=== PATIENT | male | born 1955 | race Caucasian/White ===

== ENCOUNTER → 2017-09-28 08:56 | Outpatient (CLI) | payer MEDICARE, SELFPAY ==
--- NOTE | 2017-09-28 09:10 | RAD_ITS ---
STUDY: X-RAY CHEST REASON FOR EXAM: Male, 62 years old. 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 TECHNIQUE: PA and lateral views of the chest. COMPARISON: Comparison is made with prior chest radiograph dated October 23, [address] scan of thorax dated January 08, 2014. FINDINGS: Surgical clips are seen in the lower aspect of the right cervical region. Right apical thickening with increased markings in the right lung apex most likely representing postradiation fibrosis. Hyperinflation. Scattered calcified granulomas. No focal infiltrate is seen. Normal size heart. Normal mediastinum and sean. Normal visualized pulmonary arteries. There is atherosclerotic calcification of the aortic arch with tortuosity. There is demineralization of the osseous structures. Normal visualized ribs, clavicles, and shoulders. There is no demonstrated abnormality of the visualized soft tissue structures of the upper abdomen. RAD/Chest PA and Lateral IMPRESSION: Hyperinflation. Findings suggestive of post radiation scarring at the right lung apex. Electronically Signed: Ashok Isaac MD at 13:11 EDT Tel [phone], Service support ,
== END ==
PROVIDERS: Family Provider Family Medicine; PCP Family Medicine; Visit Provider Internal Medicine Medical Oncology
DX: C09.9 Malignant neoplasm of tonsil, unspecified (principal)
CPT/HCPCS: 71046

== ENCOUNTER 2022-08-20 19:49 | Emergency (ER) | payer MEDICARE, SELFPAY ==
[2022-08-20 19:49] VITALS: BP 88/19; PULSE 103; RESP 18; TEMP 36.7; O2SAT 93; BMI 19.1
--- NOTE | 2022-08-20 20:32 | CT_ITS ---
STUDY: CT ABDOMEN AND PELVIS WITHOUT CONTRAST REASON FOR EXAM: Male, 67 years old. Abdominal pain. Left lower quadrant intermittent pain for 4 to 5 years. History of oropharyngeal cancer. History of PEG tube. RADIATION DOSAGE (If Supplied By Facility): CTDIvol = ( 6.04 ) mGy, DLP = ( 292.95 ) mGycm TECHNIQUE: Transaxial images were obtained from the dome of the diaphragm to the symphysis pubis without oral contrast, and without intravenous contrast. Sagittal and coronal images were reconstructed. Individualized dose optimization techniques were used for this CT. COMPARISON: None. FINDINGS: Emphysematous changes in the lung bases without mass or infiltrate. No pleural abnormality. The visualized portions of the heart are within normal limits. Normal liver. The gallbladder is poorly distended but otherwise unremarkable. No biliary ductal dilatation. Normal spleen. Normal pancreas. Normal bilateral adrenal glands. Normal right kidney. Normal left kidney. Normal visualized ureters. Normal visualized stomach. Normal small intestine. Air and feces is seen within the colon. There is no mass or obstruction. 3 There is diffuse atherosclerotic calcification of the abdominal aorta, without a demonstrated aneurysm. Normal inferior vena cava. Normal retroperitoneum. Thick-walled urinary bladder without filling defect. The prostate is enlarged and invaginates into the bladder floor. No pelvic lymphadenopathy. There is minimal fluid in the pelvis without free air. Normal abdominal wall. Degenerative changes of the lumbar spine and hips. CT/Abdomen/Pelvis without Cont IMPRESSION: 1. Emphysema. 2. Bladder wall thickening. Cystitis versus bladder outlet obstruction. 3. Enlarged prostate. 4. Minimal free fluid in the pelvis of unknown etiology. 5. Atherosclerotic changes of the abdominal aorta. 6. Degenerative changes of the lumbar spine and hips. Electronically Signed: Bronson Hart DO at 21:04 EDT Reading Location ID and State: [address] [place] [address] Tel [phone], Service support ,
[2022-08-20 20:35] LABS: Bacteria 0 SEEN /hpf (None Seen); Mucous, Urine 0 SEEN /hpf (<or=2+); Red Blood Cells-Urine 0 SEEN /hpf (0-5); Squamous Epithelial Cells - UA 0 SEEN /hpf (0-5)
[2022-08-20 20:42] LABS: Absolute Lymphocyte Count 1.34 X10^3/uL (0.83-4.51); Absolute Neutrophil Count 11.4 X10^3/uL (2.0-7.7); Basophil# 0.05 X10^3/uL; Basophil% 0.4 % (0-1); Eosinophils% 0.7 % (0-5); Hematocrit 48.2 % (40-54); Hemoglobin 16.3 g/dL (13.0-16.5); Lymphocyte # 1.34 X10^3/ul (0.83-4.51); Lymphocyte % 9.5 % (19-41); Mean Corp Hgb Conc 33.8 g/dL (32-36); Mean Corpuscular Hgb 33.7 pg (27.0-32.0); Mean Corpuscular Volume 99.8 fL (80-94); Monocyte# 1.24 X10^3/uL; Monocyte% 8.8 % (0-10); NRBC Flagged by Analyzer 0 % (0-5); Neutrophil # 11.36 X10^3/uL (2.7-7.7); Neutrophil % 80.2 % (47-70); Platelet Count 373 K/mm3 (150-450); RBC Distribution Width CV 14.6 % (11.6-14.6); RBC Distribution Width SD 54.2 fl (35.1-43.9); Red Blood Count 4.83 M/mm3 (4.6-6.2); White Blood Count 14.2 K/mm3 (4.4-11.0)
[2022-08-20 20:53] LABS: Color, Urine Yellow (Yellow); Glucose, Dipstick Normal (Normal); Ketone-Dipstick 5 mg/dl (Negative); Leukocyte Esterase-Dipstick 25 /ul (Negative); Nitrite-Dipstick Negative (Negative); Occult Blood-Urine 10 /ul (Negative); Protein-Dipstick 30 mg/dl (Negative); Specific Gravity, Urine 1.025 (1.002-1.030); Urine Bilirubin Dipstick Negative (Negative); Urine Clarity Clear (Clear); Urine Urobilinogen 1 mg/dl (Normal)
[2022-08-20 20:59] LABS: ALB/GLOB Ratio 0.7 RATIO (0.9-2.4); AST(SGOT) 20 U/L (15-37); Alanine Aminotransfer ALT/SGPT 18 U/L (16-61); Albumin, Serum 3.2 g/dL (3.2-5.0); Alkaline Phosphatase 108 U/L (45-117); Anion Gap 6 (5-15); BUN 44 mg/dL (7-18); BUN/Creat Ratio 41.5 RATIO (10-20); Calcium,Total 10.1 mg/dL (8.5-10.1); Chloride 100 mmol/L (98-107); Creatinine, Serum 1.06 mg/dL (0.70-1.30); EST Glomerular Filtration Rate 74 mL/min (>60); Est Glom Filt Rate - Afr Amer 90 mL/min (>60); Estimated Creatinine Clearance 56.23 ml/min; Globulin 4.5 g/dL (2.2-4.2); Glucose 103 mg/dL (74-106); Lipase 256 U/L (73-393); Potassium 4.7 mmol/L (3.5-5.1); Protein, Total 7.7 g/dL (6.4-8.2); Sodium Level 138 mmol/L (136-145)
[2022-08-20 21:02] LABS: Hyaline Cast 5-10 SEEN /lpf (0-5); White Blood Cells 0-5 SEEN /hpf (0-5)
[2022-08-20 21:49] VITALS: BP 121/81; PULSE 89; RESP 16; O2SAT 93
--- NOTE | 2022-08-20 21:53 | ED.VIS.GI ---
HPI HPI - GI History of Present Illness Chief Complaint: Abd Pain Abdominal Pain/Flank Pain Onset: Days (4-5) Context: Gradual Onset Timing: Waxes and wanes Quality: Cramping Location: LUQ Worsened by: Nothing Relieved by: Food Nausea/Vomiting/Emesis GI Symptom: Positive for Nausea and Vomiting Quality: Positive for Nonbilious; Negative for Blood streaks, Coffee ground or Hematemesis Diarrhea/Melena/Hematochezia GI Symptom: Negative for Diarrhea, Melena or Hematochezia Associated Symptoms Associated Symptoms: Positive for Frequency; Negative for Dysuria or Hematuria Narrative Narrative: Patient presents with left upper quadrant abdominal pain that has been waxing and waning over the last 4 to 5 days. Patient states it is better after he eats and his stomach feels full. Patient states it is worse before he eats when his stomach is empty. Patient describes his pain as cramping. Patient states the pain is over the left upper abdomen. Patient denies any fevers or chills. Patient admits to some nausea and vomiting. Patient denies any hematemesis or coffee-ground emesis. Patient admits to some urinary frequency but denies any dysuria or hematuria. Patient denies any diarrhea, melena, or hematochezia. PFSH [facility] Medical History GERD (gastroesophageal reflux disease) Heart murmur Hyperlipidemia mandibular revision Rheumatic fever right segmental mandibular resection Thyroid disease Tonsil cancer Home Medications atorvastatin 20 mg tablet 40 mg PO QHS 08/21/15 [History Last Taken Unknown] chlorhexidine gluconate 0.12 % mouthwash (Peridex) 15 ml MM BID 08/21/15 [History Last Taken Unknown] levothyroxine 175 mcg tablet 175 mcg PO DAILY 09/30/17 [History Last Taken Unknown] omeprazole 20 mg capsule,delayed release 20 mg PO DAILY #30 CAPSULES 08/20/22 [Rx Last Taken Unknown] Allergy/AdvReac Type Severity Reaction Status Date / Time No Known Allergies Allergy Verified 09/30/17 13:37 Family History Mother Diabetes Surgical History H/O hernia repair History of vasectomy Hx of tonsillectomy S/P percutaneous endoscopic gastrostomy (PEG) tube placement Social History Smoking Status: Current every day smoker tobacco type: cigarettes ROS ROS ED Constitutional Constitutional ED: Denies chills or fever(s) Eyes Eyes: Denies blurry vision or change in vision ENT ENT ED: Reports sore throat; Denies rhinorrhea Cardiovascular Cardiovascular: Denies chest pain or palpitations Respiratory/Chest Respiratory/Chest: Denies cough or dyspnea Gastrointestinal Gastrointestinal: Reports abdominal pain, nausea and vomiting; Denies diarrhea or melena Genitourinary Genitourinary ED: Denies dysuria or hematuria Musculoskeletal Musculoskeletal: Reports back pain and neck pain Integumentary Denies abscess or rash Neurologic Neurologic: Reports headache(s); Denies weakness Allergic/Immunologic Allergic/Immunologic ED: Denies mouth swelling or urticaria EXAM Physical Exam Const Vital Signs: 08/20/22 19:49 08/20/22 21:49 Temperature 98.1 F Temperature Source Temporal Pulse Rate 103 H 89 Respiratory Rate 18 16 Blood Pressure 88/19 L 121/81 H Blood Pressure Mean 42 Pulse Ox 93 93 Positive well nourished and well developed General Appearance ED: well developed and NAD HEENT Reports moist mucous membranes HEENT Narrative: There is a soft tissue mass of the lower gingiva and oral mucosa in the midline of the mandible. Oropharynx is clear. Airway is patent. Neck supple and no JVD Resp normal respiratory effort and clear to auscultation bilaterally Cardio regular rate, regular rhythm and no murmurs GI normal to inspection, nondistended, normoactive bowel sounds and non-tender Palpation: soft and tender LUQ; Negative for guarding or rebound tenderness present Extremity normal to inspection General Extremety ED: Negative for edema or tenderness General Extremity: Negative for edema Neuro oriented x3, CN's II-XII intact bilaterally and no sensory deficits noted Sensorium / Orientation: alert Motor Exam: strength 5/5 throughout Psych mental status grossly normal Skin no rashes or lesions noted MDM MDM MDM Narrative Medical decision making narrative: Differential diagnosis includes bowel obstruction, perforation, gastritis, peptic ulcer disease, pancreatitis, abdominal mass, urinary tract infection, and pyelonephritis. CBC will be obtained to assess for leukocytosis and anemia. Comprehensive metabolic profile will be obtained to assess for renal function, hepatic function, and electrolyte abnormality. Urinalysis will be obtained to assess for urinary tract infection. Lipase will be obtained to assess for pancreatitis. CT scan of the abdomen pelvis will be obtained to assess for bowel obstruction, perforation, and mass. History & Record Review Additional record(s) reviewed:: Prior labs Lab Data Attestation: I reviewed the patient's lab results. Lab results narrative: CBC was reviewed. There is a mild leukocytosis of 14.2. Hemoglobin was stable at 16.3. Platelets were normal. Comprehensive metabolic profile was reviewed. BUN is slightly increased at 44. The remainder was within normal limits. Lipase was reviewed and was normal at 256. Urinalysis was reviewed. There is no evidence of urinary tract infection or hematuria. Labs: Laboratory Results - last 24 hr 08/20/22 08/20/22 08/20/22 20:10 20:10 20:10 WBC 14.2 H RBC 4.83 Hgb 16.3 Hct 48.2 MCV 99.8 H MCH 33.7 H MCHC 33.8 RDW Std Deviation 54.2 H RDW Coeff of Sheldon 14.6 Plt Count 373 MPV 10.0 Immature Gran % (Auto) 0.400 Neut % (Auto) 80.2 H Lymph % (Auto) 9.5 L [place] % (Auto) 8.8 Eos % (Auto) 0.7 Baso % (Auto) 0.4 Absolute Neuts (auto) 11.4 H Absolute Lymphs (auto) 1.34 Nucleated RBC % 0 Sodium 138 Potassium 4.7 Chloride 100 Carbon Dioxide 32.0 Anion Gap 6 BUN 44 H Creatinine 1.06 Estim Creat Clear Calc 56.23 Est GFR (MDRD) Af Amer 90 Est GFR (MDRD) Non-Af 74 BUN/Creatinine Ratio 41.5 H Glucose 103 Calcium 10.1 Total Bilirubin 0.20 AST 20 ALT 18 Alkaline Phosphatase 108 Total Protein 7.7 Albumin 3.2 Globulin 4.5 H Albumin/Globulin Ratio 0.7 L Lipase 256 Urine Color Yellow Urine Clarity Clear Urine pH 5.0 Ur Specific [place] 1.025 Urine Protein 30 H Urine Glucose (UA) Normal Urine Ketones 5 H Urine Occult Blood 10 H Urine Nitrite Negative Urine Bilirubin Negative Urine Urobilinogen 1 H Ur Leukocyte Esterase 25 H Urine RBC 0 SEEN Urine WBC 0-5 SEEN Ur Squamous Epith Cells 0 SEEN Urine Bacteria 0 SEEN Hyaline Casts 5-10 SEEN Urine Mucus 0 SEEN Radiography Diagnostic Testing: Clinical Impression(s) from Imaging Studies Abdomen/Pelvis CT 08/20/22 20:32 IMPRESSION: 1. Emphysema. 2. Bladder wall thickening. Cystitis versus bladder outlet obstruction. 3. Enlarged prostate. 4. Minimal free fluid in the pelvis of unknown etiology. 5. Atherosclerotic changes of the abdominal aorta. 6. Degenerative changes of the lumbar spine and hips. Electronically Signed: Bronson HartDO at 21:04 EDT Reading Location ID and State: [facility] / [place] Tel [phone], Service support , CT scan of the abdomen pelvis was obtained. There is bladder wall thickening. There is an enlarged prostate. There is no acute intra-abdominal abnormality noted. This was interpreted by the radiologist and was also independently reviewed by myself. Treatment and Re-Evaluation :: Patient was feeling better on reevaluation. Patient was advised of his findings. I do not feel the patient needs to be admitted to the hospital. Patient is agreeable with this. Patient was given a prescription for omeprazole. Patient was instructed to follow-up with his primary care physician in 3 to 5 days. Patient understood and was agreeable with the plan. All questions were answered. Discharge Plan Triage Chief Complaint: Abd Pain ED Provider: Eliseo Granados Dx/Rx/DC Orders Clinical Impression: Abdominal pain, History of oropharyngeal cancer Instructions: ED Abdominal Pain Unkn Cause Male... Prescriptions: New omeprazole [omeprazole] 20 mg capsule,delayed release(DR/EC) 20 mg PO DAILY Qty: 30 0RF No Action atorvastatin 20 MG tablet 40 mg PO QHS Label Comments: cholesterol chlorhexidine gluconate [Peridex] 15 ML mouthwash 15 ml MM BID Label Comments: mouthwash levothyroxine 175 MCG tablet 175 mcg PO DAILY Primary Care Provider: Mj Meyers Referrals: Mj Meyers MD [Primary Care Provider] - 3-5 Days Disposition Disposition: Home, Self Care
== END 2022-08-20 21:54 | disposition home or self-care (01) ==
PROVIDERS: Emergency Provider Emergency Medicine; PCP Family Medicine; Visit Provider Emergency Medicine
DX: R10.12 Left upper quadrant pain (principal); F17.210 Nicotine dependence, cigarettes, uncomplicated
CPT/HCPCS: 74176; 80053; 81001; 83690; 85025; 99282

== ENCOUNTER 2023-11-01 21:42 | Emergency (ER) | payer MEDICARE, SELFPAY ==
[2023-11-01 21:43] VITALS: BP 101/84; PULSE 108; RESP 18; TEMP 36.8; O2SAT 94; BMI 17.3
[2023-11-01 22:11] VITALS: BP 149/107; PULSE 78; RESP 19; O2SAT 94
[2023-11-01 22:53] LABS: Absolute Lymphocyte Count 1.71 X10^3/uL (0.83-4.51); Basophil# 0.06 X10^3/uL; Basophil% 0.6 % (0-1); Eosinophil# 0.19 X10^3/uL; Eosinophils% 1.9 % (0-5); Hematocrit 52.6 % (40-54); Lymphocyte # 1.71 X10^3/ul (0.83-4.51); Lymphocyte % 17.2 % (19-41); Mean Corp Hgb Conc 32.3 g/dL (32-36); Mean Corpuscular Hgb 32.9 pg (27.0-32.0); Mean Corpuscular Volume 101.7 fL (80-94); Mean Platelet Vol. 10.2 fl (6.2-12.0); Monocyte# 0.94 X10^3/uL; Monocyte% 9.4 % (0-10); NRBC Flagged by Analyzer 0 % (0-5); Neutrophil # 7.03 X10^3/uL (2.7-7.7); Neutrophil % 70.5 % (47-70); Platelet Count 320 K/mm3 (150-450); RBC Distribution Width CV 12.5 % (11.6-14.6); RBC Distribution Width SD 47.5 fl (35.1-43.9); Red Blood Count 5.17 M/mm3 (4.6-6.2)
[2023-11-01 23:10] LABS: ALB/GLOB Ratio 0.8 RATIO (0.9-2.4); AST(SGOT) 16 U/L (15-37); Alanine Aminotransfer ALT/SGPT 15 U/L (16-61); Albumin, Serum 3.6 g/dL (3.2-5.0); Alkaline Phosphatase 122 U/L (45-117); Anion Gap 4 (5-15); BUN 31 mg/dL (7-18); BUN/Creat Ratio 39.2 RATIO (10-20); Calcium,Total 10.4 mg/dL (8.5-10.1); Chloride 101 mmol/L (98-107); Creatinine, Serum 0.79 mg/dL (0.70-1.30); EST Glomerular Filtration Rate 104 mL/min (>60); Est Glom Filt Rate - Afr Amer 125 mL/min (>60); Estimated Creatinine Clearance 66.66 ml/min; Globulin 4.8 g/dL (2.2-4.2); Glucose 117 mg/dL (74-106); Potassium 4.7 mmol/L (3.5-5.1); Protein, Total 8.4 g/dL (6.4-8.2); Sodium Level 137 mmol/L (136-145)
--- NOTE | 2023-11-01 23:29 | CT_ITS ---
EXAM: CT Abdomen And Pelvis W/ Contrast Injection HISTORY: abd pain n/v bloody stool, hx tonsil ca, hernial repair, peg tube labs 104 TECHNIQUE: Routine protocol CT abdomen pelvis. IV Contrast: IV 100mL Isovue-370 . Oral Contrast: without. Sagittal and coronal images were reconstructed. RADIATION DOSAGE (If Supplied By Facility): CTDIvol = ( 12.13 ) mGy, DLP = ( 396.75 ) mGycm Individualized dose optimization techniques were used for this CT. COMPARISON: CT abdomen and pelvis 08/20/2022. LIMITATIONS: None. FINDINGS: LOWER CHEST: Emphysematous changes. Patchy groundglass opacities left lower lobe increased compared to the prior.. LIVER: A few tiny low-attenuation structures too small to characterize. GALLBLADDER/BILE DUCTS: Unremarkable. PANCREAS: Pancreatic duct is slightly dilated 4 mm. SPLEEN: Unremarkable. ADRENAL GLANDS: Unremarkable. KIDNEYS / URETERS: Unremarkable. A few small cysts in the kidneys. BOWEL / MESENTERY: G tube tip in the stomach. Suggestion of gastric wall thickening distal gastric antrum through the first portion of the duodenum possibly exaggerated by suboptimal distention. Short segment small bowel intussusception in the left mid abdomen, length of approximately 3.5 cm. No wall thickening or adjacent stranding. Suggestion of wall thickening of the descending colon versus nondistention. No bowel obstruction. APPENDIX: Not identified. PERITONEUM: No free air. No free fluid. VESSELS: Abdominal aorta is normal caliber. RETROPERITONEUM: Unremarkable. REPRODUCTIVE ORGANS: Prostate enlarged and heterogeneous, indents into the base of the bladder. BLADDER: Mildly distended. Prominent wall likely suboptimal distention. ABDOMINAL WALL: Unremarkable. BONES: No acute abnormality. Osteopenic. Bilateral pars defects at L5 with grade 1 spondylolisthesis L5-S1. OTHER: None. CT/Abdomen/Pelvis W IV Cont ONLY IMPRESSION: 1. Suggestion of distal gastric/duodenal wall thickening and nondistention versus gastritis or other process. 2. Suggestion of wall thickening descending colon is most likely nondistention. Early colitis difficult to exclude. 3. Short segment of small bowel intussusception in the left mid abdomen may be an incidental transient finding. No findings of complication or bowel obstruction. 4. Slightly dilated pancreatic duct. Uncertain etiology. Consider follow-up MRI/MRCP. 5. Enlarged prostate. 6. Patchy groundglass opacities in the left lower lobe most likely inflammatory/pneumonitis superimposed on chronic changes. Correlate for pneumonia. Electronically Signed: Irene Castro MD at 1:28 EDT ,
[2023-11-01 23:33] LABS: Lipase 46 U/L (13-75)
[2023-11-01] MEDS: Morphine 4 MG/ML Syringe IV (23:36)
[2023-11-01] MEDS: 0.9% Normal Saline (500mL Bag) 500 ML 999 ML IV (23:36)
[2023-11-01] MEDS: Ondansetron 4 MG/2 ML Vial IV (23:36)
[2023-11-01 23:42] VITALS: BP 146/99; PULSE 83; RESP 15; O2SAT 93
[2023-11-02 00:07] LABS: Lactic Acid 0.7 mmol/L (0.4-1.9)
[2023-11-02 00:55] LABS: Bacteria 0 SEEN /hpf (None Seen); Mucous, Urine 0 SEEN /hpf (<or=2+); Red Blood Cells-Urine 0 SEEN /hpf (0-5); Squamous Epithelial Cells - UA 0 SEEN /hpf (0-5); White Blood Cells 0 SEEN /hpf (0-5)
[2023-11-02 00:58] LABS: Color, Urine Yellow (Yellow); Glucose, Dipstick Normal (Normal); Ketone-Dipstick Negative (Negative); Leukocyte Esterase-Dipstick Negative /ul (Negative); Nitrite-Dipstick Negative (Negative); Occult Blood-Urine Negative /ul (Negative); Protein-Dipstick 15 mg/dl (Negative); Urine Bilirubin Dipstick Negative (Negative); Urine Clarity Clear (Clear); Urine Urobilinogen Normal (Normal)
[2023-11-02 01:00] VITALS: BP 147/95; PULSE 83; RESP 18; O2SAT 90
--- NOTE | 2023-11-02 02:28 | EX.ED.DYSGE1 ---
HPI History of Present Illness Chief Complaint: Abd Pain Informant: patient Narrative Narrative: Patient is a 68-year-old male with past medical history of oropharyngeal cancer requiring PEG tube placement. He states he is having generalized abdominal discomfort which is greatest at the insertion of the PEG tube site and that he has been having diarrhea that appears bloody in nature. He denies any fevers but states that secondary to the pain and persistent symptoms he is concerned he may need potential antibiotics for potential infection and therefore comes in for evaluation. [facility] Medical History GERD (gastroesophageal reflux disease) Heart murmur Hyperlipidemia mandibular revision Rheumatic fever right segmental mandibular resection Thyroid disease Tonsil cancer Home Medications ?Medication ?Instructions ?Recorded ?Last Taken ?Type atorvastatin 20 mg tablet 40 mg PO QHS 08/21/15 Unknown History chlorhexidine gluconate 0.12 % 15 ml MM BID 08/21/15 Unknown History mouthwash (Peridex) levothyroxine 175 mcg tablet 175 mcg PO DAILY 09/30/17 Unknown History omeprazole 20 mg capsule,delayed 20 mg PO DAILY #30 CAPSULES 08/20/22 Unknown Rx release amoxicillin 400 mg-potassium 10 ml PO BID 7 days #140 mL 11/02/23 Unknown Rx clavulanate 57 mg/5 mL oral suspension oxycodone 5 mg/5 mL oral solution 5 mg (5 mL) PO Q6H PRN pain 3 days 11/02/23 Unknown Rx #60 mL Allergy/AdvReac Type Severity Reaction Status Date / Time No Known Allergies Allergy Verified 11/01/23 21:45 Family History Mother Diabetes Surgical History H/O hernia repair History of vasectomy Hx of tonsillectomy S/P percutaneous endoscopic gastrostomy (PEG) tube placement Social History Smoking Status: Current every day smoker tobacco type: cigarettes ROS ROS ED Constitutional Constitutional ED: Denies chills or fever(s) Cardiovascular Cardiovascular: Denies chest pain Respiratory/Chest Respiratory/Chest: Denies cough or dyspnea Gastrointestinal Gastrointestinal: Reports abdominal pain and diarrhea; Denies nausea or vomiting Genitourinary Genitourinary ED: Denies dysuria or hematuria Musculoskeletal Musculoskeletal: Reports myalgias Integumentary Denies rash Neurologic Neurologic: Denies headache(s) Hematologic/Lymphatic Hematologic/Lymphatic: Denies easy bleeding or easy bruising EXAM Physical Exam Const Vital Signs: 11/01/23 21:43 11/01/23 22:11 11/01/23 23:42 Temperature 98.2 F Temperature Source Temporal Pulse Rate 108 H 78 83 Respiratory Rate 18 19 H 15 Blood Pressure 101/84 H 149/107 H 146/99 H Blood Pressure Mean 89 121 114 Pulse Ox 94 94 93 Oxygen Delivery Method Room Air Room Air Room Air 11/02/23 01:00 Temperature Temperature Source Pulse Rate 83 Respiratory Rate 18 Blood Pressure 147/95 H Blood Pressure Mean 112 Pulse Ox 90 Oxygen Delivery Method Room Air Positive well nourished and well developed General Appearance ED: well developed; Negative for pallor HEENT HEENT Narrative: Patient has chronic changes to his mouth/jaw secondary to history of oropharyngeal cancer and reconstructive surgery however there is no dried blood or active bleeding noted in the posterior pharynx no overt signs of infection Eyes PERRL and EOMs intact bilaterally General Eye ED: Negative for pale conjunctiva or scleral icterus Neck supple Resp normal respiratory effort and clear to auscultation bilaterally Resp Narrative: Breath sounds are diminished But overall clear to auscultation without signs of respiratory distress Cardio regular rate and regular rhythm Rate: other Other Details: Heart is regular rate and rhythm Radial and carotid pulses are equal and symmetric GI non-distended GI Narrative: Abdomen is soft and nondistended with hyperactive bowel sounds. Patient has mild diffuse tenderness to palpation which is greatest at the insertion of the PEG tube site. The skin overlying this area is excoriated and erythematous consistent with tissue breakdown. There is no voluntary guarding or rigidity or pulsatile mass. Auscultation: hyperactive bowel sounds Palpation: soft Narrative: Rectal exam shows no hemorrhoids or anal fissure and rectal tone is normal and stool is brown in color and Hemoccult negative Extremity normal to inspection Neuro oriented x3, CN's II-XII intact bilaterally and no sensory deficits noted Sensorium / Orientation: alert Motor Exam: strength 5/5 throughout Psych mental status grossly normal Skin Skin Narrative: Soft tissue excoriation around the insertion of the PEG tube site as documented above General Skin Exam: Negative for jaundice or pallor MDM MDM MDM Narrative Medical decision making narrative: Patient presented to the ER with stable vitals and a soft nonsurgical abdomen. He had diffuse tenderness palpation and reported loose stool/diarrhea with concern for blood and therefore differential diagnosis is for gastroenteritis secondary to [place] versus rotavirus versus pancreatitis versus colitis versus diverticulitis versus acute blood loss anemia. Basic blood work is obtained and shows a stable H&H without left shift or lactic acidosis. Patient's rectal exam revealed no sign of melanotic stool and Hemoccult test was negative. Urine sample revealed no sign of blood or infection either and lipase and liver enzymes revealed no signs of potential biliary colic/acute cholecystitis or pancreatitis. Patient was treated and reported improvement of his pain and on reevaluation his abdomen remains soft and nonsurgical. Therefore with negative workup at this time and improvement of symptoms I do not feel there is need for further treatment or admission to the hospital and is otherwise safe for discharge History & Record Review Discussion w/independent historian: Patient Lab Data Attestation: I reviewed the patient's lab results. Labs: Laboratory Results - last 24 hr 11/01/23 11/01/23 11/02/23 22:35 23:25 00:50 WBC 10.0 RBC 5.17 Hgb 17.0 H Hct 52.6 MCV 101.7 H MCH 32.9 H MCHC 32.3 RDW Std Deviation 47.5 H RDW Coeff of [place]ld[place] 12.5 Plt Count 320 MPV 10.2 Immature Gran % (Auto) 0.400 Neut % (Auto) 70.5 H Lymph % (Auto) 17.2 L [place] % (Auto) 9.4 Eos % (Auto) 1.9 Baso % (Auto) 0.6 Absolute Neuts (auto) 7.0 Absolute Lymphs (auto) 1.71 Nucleated RBC % 0 Sodium 137 Potassium 4.7 Chloride 101 Carbon Dioxide 32.0 Anion Gap 4 L BUN 31 H Creatinine 0.79 Estim Creat Clear Calc 66.66 Est GFR (MDRD) Af Amer 125 Est GFR (MDRD) Non-Af 104 BUN/Creatinine Ratio 39.2 H Glucose 117 H Lactic Acid 0.7 Calcium 10.4 H Total Bilirubin 0.20 AST 16 ALT 15 L Alkaline Phosphatase 122 H Total Protein 8.4 H Albumin 3.6 Globulin 4.8 H Albumin/Globulin Ratio 0.8 L Lipase 46 Urine Color Yellow Urine Clarity Clear Urine pH 7.0 Ur Specific [place] 1.010 Urine Protein 15 H Urine Glucose (UA) Normal Urine Ketones Negative Urine Occult Blood Negative Urine Nitrite Negative Urine Bilirubin Negative Urine Urobilinogen Normal Ur Leukocyte Esterase Negative Urine RBC 0 SEEN Urine WBC 0 SEEN Ur Squamous Epith Cells 0 SEEN Urine Bacteria 0 SEEN Urine Mucus 0 SEEN Radiography Diagnostic Testing: Clinical Impression(s) from Imaging Studies Abdomen/Pelvis CT 11/01/23 23:29 IMPRESSION: 1. Suggestion of distal gastric/duodenal wall thickening and nondistention versus gastritis or other process. 2. Suggestion of wall thickening descending colon is most likely nondistention. Early colitis difficult to exclude. 3. Short segment of small bowel intussusception in the left mid abdomen may be an incidental transient finding. No findings of complication or bowel obstruction. 4. Slightly dilated pancreatic duct. Uncertain etiology. Consider follow-up MRI/MRCP. 5. Enlarged prostate. 6. Patchy groundglass opacities in the left lower lobe most likely inflammatory/pneumonitis superimposed on chronic changes. Correlate for pneumonia. Electronically Signed: Irene Castro MD at 1:28 EDT , Discharge Plan Triage Chief Complaint: Abd Pain ED Provider: Elier White Dx/Rx/DC Orders Clinical Impression: Abdominal pain, History of oropharyngeal cancer, Hypothyroidism Instructions: Abdominal Pain, ED Understanding Colitis Prescriptions: New amoxicillin-pot clavulanate 400-57 mg/5 mL suspension for reconstitution 10 ml PO BID 7 Days Qty: 140 0RF oxycodone 5 mg/5 mL solution 5 mg PO Q6H PRN (Reason: pain) 3 Days Qty: 60 0RF No Action atorvastatin 20 MG tablet 40 mg PO QHS Patient Comments: cholesterol chlorhexidine gluconate [Peridex] 15 ML mouthwash 15 ml MM BID Patient Comments: mouthwash levothyroxine 175 MCG tablet 175 mcg PO DAILY omeprazole [omeprazole] 20 mg capsule,delayed release(DR/EC) 20 mg PO DAILY Qty: 30 0RF Primary Care Provider: Mj Meyers Referrals: Mj Meyers MD [Primary Care Provider] - Activity Restrictions/Additional Instructions: Your workup today shows intestinal inflammation which could be the start of an infection known as colitis. Therefore take the Augmentin as directed to help control symptoms. If you have any further concerns return to the ER for repeat evaluation Print Language: Cambodian Disposition Disposition: Home, Self Care Discharge Date/Time: 11/02/23 02:43
[2023-11-02] MEDS: HYDROmorphone 1 MG/ML Syringe IV (02:38)
[2023-11-02 02:39] VITALS: BP 166/105; PULSE 80; RESP 18; TEMP 36.1; O2SAT 92
== END 2023-11-02 02:43 | disposition home or self-care (01) ==
PROVIDERS: Emergency Provider Emergency Medicine; PCP Family Medicine; Visit Provider Emergency Medicine
DX: R10.9 Unspecified abdominal pain (principal); Z93.1 Gastrostomy status; E03.9 Hypothyroidism, unspecified; F17.210 Nicotine dependence, cigarettes, uncomplicated
CPT/HCPCS: 74177; 80053; 81001; 82274; 83605; 83690; 85025; 96361; 96374; 96375; 96376; 99283; Q9967; A4216; J2405

== ENCOUNTER 2024-09-28 23:27 | Emergency (ER) | payer MEDICARE, SELFPAY ==
[2024-09-28 23:28] VITALS: BP 94/72; PULSE 92; RESP 16; TEMP 36.4; O2SAT 92; BMI 17.2
--- NOTE | 2024-09-29 00:12 | EDS_ITS ---
HPI History of Present Illness Chief Complaint: Other, Pain/Inj Informant: patient Narrative Narrative: Patient is a 69-year-old male with past medical history of oropharyngeal cancer for which she had to have a PEG tube placed. He states he has had the tube for approximately 1 year. He reports roughly 2 hours prior to arrival he accidentally got the PEG tube caught and yanked it out. He states he knows that the PEG tube opening will close of left alone and therefore he presents for PEG tube placement. He states otherwise has been feeling normal/at his baseline [facility] Medical History mandibular revision right segmental mandibular resection Heart murmur Hyperlipidemia Rheumatic fever Thyroid disease GERD (gastroesophageal reflux disease) Tonsil cancer Home Medications ?Medication ?Instructions ?Recorded ?Last Taken ?Type atorvastatin 20 mg tablet 40 mg PO QHS 08/21/15 Unknow n History chlorhexidine gluconate 0.12 % 15 ml MM BID 08/21/15 U nknown History mouthwash (Peridex) levothyroxine 175 mcg tablet 175 mcg PO DAILY 09/30/17 Unknown History omeprazole 20 mg capsule,delayed 20 mg PO DAILY #30 CA PSULES 08/20/22 Unknown Rx release QHL-kclbulxencmth-stlm-potass .ROUTE 09/29/24 Unknown History Allergy/AdvReac Type Severity Reaction Status Date / Time No Known Allergies Allergy Verified 09/28/24 23:28 Family History Mother Diabetes Surgical History H/O hernia repair History of vasectomy Hx of tonsillectomy S/P percutaneous endoscopic gastrostomy (PEG) tube placement Social History Smoking Status: Former smoker ROS ROS ED Constitutional Constitutional ED: Denies chills or fever(s) Cardiovascular Cardiovascular: Denies chest pain Respiratory/Chest Respiratory/Chest: Denies cough or dyspnea Gastrointestinal Gastrointestinal: Denies abdominal pain Musculoskeletal Musculoskeletal: Denies myalgias Integumentary Denies rash Neurologic Neurologic: Denies headache(s) Hematologic/Lymphatic Hematologic/Lymphatic: Denies easy bleeding or easy bruising EXAM Physical Exam Const Vital Signs: 09/28/24 23:28 09/29/24 00:16 09/29/24 00:19 Temperature 97.6 F L 98.4 F Temperature Source Oral Pulse Rate 92 73 Respiratory Rate 16 16 Respiratory Effort Normal Respiratory Pattern Normal Blood Pressure 94/72 108/87 H Blood Pressure Mean 79 94 Pulse Ox 92 90 Oxygen Delivery Method Room Air Positive well nourished and well developed General Appearance ED: well developed HEENT HEENT Narrative: Normocephalic atraumatic Eyes PERRL and EOMs intact bilaterally General Eye ED: Negative for scleral icterus Neck supple Resp normal respiratory effort and clear to auscultation bilaterally Cardio regular rate and regular rhythm GI normal to inspection, nondistended, normoactive bowel sounds, non-tender, non- distended and no masses GI Narrative: There is a opening in the mid abdomen consistent with PEG tube ostomy. There is mild surrounding soft tissue skin irritation without secondary findings to suggest infection. There is leakage of gastric contents from the site. Otherwise no voluntary guarding or rigidity or pulsatile mass Auscultation: normoactive bowel sounds Palpation: soft Extremity normal to inspection Neuro oriented x3 and CN's II-XII intact bilaterally Sensorium / Orientation: alert Psych mental status grossly normal Skin Skin Narrative: Mild surrounding soft tissue irritation around the PEG tube ostomy otherwise no secondary findings to suggest infection MDM MDM MDM Narrative Medical decision making narrative: Patient arrived to the ER with stable vitals. He reports he was feeling normal and would not of come to the ER except for the fact he accidentally dislodged his PEG tube. Therefore with concern about PEG tube ostomy closure I did feel there is a need to replace this we can take his medication and prevent need for surgical intervention. I attempted to replace a 24 Ethiopian tube but the ostomy stricture was too tight and therefore I had to decrease the size to a 20 Ethiopian. The area was cleaned with Betadine and then sterile lidocaine jelly was placed over top the open. The 20 Ethiopian catheter PEG tube was then inserted to 4 cm. The balloon inflated without difficulty. There was return of gastric contents in the tube indicating it is in the proper position. I instructed the patient that we typically perform a KUB with Gastrografin to document proper placement. However I have low concern about a false passage or improper placement as there is gastric content within the tube. Patient states since I have low concern he does not want to undergo the x-ray and therefore be discharged at this time History & Record Review Discussion w/independent historian: Patient Discharge Plan Triage Chief Complaint: Other, Pain/Inj ED Provider: Elier White Dx/Rx/DC Orders Clinical Impression: PEG tube malfunction, History of oropharyngeal cancer, Hyperlipidemia, Hypothyroidism Instructions: ED Feeding Tube Replacement Prescriptions: No Action atorvastatin 20 MG tablet 40 mg PO QHS Patient Comments: cholesterol chlorhexidine gluconate [Peridex] 15 ML mouthwash 15 ml MM BID Patient Comments: mouthwash levothyroxine 175 MCG tablet 175 mcg PO DAILY omeprazole [omeprazole] 20 mg capsule,delayed release(DR/EC) 20 mg PO DAILY Qty: 30 0RF [id number]-[id number]-zsxy-potass [Goody's Headache Powder] .ROUTE Primary Care Provider: Mj Meyers Referrals: Mj Meyers MD [Primary Care Provider] - Activity Restrictions/Additional Instructions: Please follow-up with your family doctor and/or college recruiter for repeat evaluation and return to the ER should you have any further concerns Print Language: Kazakh Disposition Disposition: Home, Self Care Discharge Date/Time: 09/29/24 00:23
[2024-09-29 00:19] VITALS: BP 108/87; PULSE 73; RESP 16; TEMP 36.9; O2SAT 90
== END 2024-09-29 00:23 | disposition home or self-care (01) ==
PROVIDERS: Emergency Provider Emergency Medicine; PCP Family Medicine; Visit Provider Emergency Medicine
DX: K94.23 Gastrostomy malfunction (principal); E78.5 Hyperlipidemia, unspecified; E03.9 Hypothyroidism, unspecified; K21.9 Gastro-esophageal reflux disease without esophagitis; Z85.819 Personal history of malignant neoplasm of unspecified site of lip, oral cavity, and pharynx; Z79.890 Hormone replacement therapy; Z79.899 Other long term (current) drug therapy; Z87.891 Personal history of nicotine dependence
CPT/HCPCS: 99282

== ENCOUNTER 2025-05-02 17:31 | Emergency (ER) | payer MEDICARE, SELFPAY ==
[2025-05-02 17:32] VITALS: BP 92/72; PULSE 98; RESP 18; TEMP 36.7; O2SAT 94; BMI 16.2
--- NOTE | 2025-05-02 18:41 | ED.RN ---
Pt's name called for placement in ED room from waiting room. Pt not found in waiting room, restroom or hallway. Assumed pt LWBS.
== END 2025-05-02 18:33 | disposition left against medical advice (07) ==
LOC: ED 18:56
PROVIDERS: PCP Family Medicine
DX: Z53.21 Procedure and treatment not carried out due to patient leaving prior to being seen by health care provider (principal)